=== PATIENT | female | born 1965 | race Caucasian/White ===

== ENCOUNTER 2022-02-07 20:07 | Emergency (ER) | payer OTHER, SELFPAY ==
--- NOTE | ~2022-02-07 | XR_ITS ---
EXAMINATION: XR FOOT, RIGHT CLINICAL INFORMATION: Pain lateral hindfoot. COMPARISON: None TECHNIQUE: AP, lateral, and oblique views of the right foot. FINDINGS: The bones and soft tissues are notable for an avulsion type injury off the dorsal aspect of the navicular. No significant overlying soft tissue swelling. This is age indeterminate. No focal lesion laterally is the site of patient's symptoms. Mild degeneration of the first metatarsophalangeal joint Alignment is anatomic. Joint spaces are maintained. XR/XR foot RT 2V IMPRESSION: As above.
[2022-02-07 20:11] VITALS: BP 132/77; PULSE 75; RESP 18; TEMP 36.7; O2SAT 99; BMI 21.6
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
[2022-02-07] MEDS: oxyCODONE HCl Immed Release 5 MG TABLET PO (21:19)
== END 2022-02-07 22:17 | disposition home or self-care (01) ==
PROVIDERS: Emergency Provider Internal Medicine; PCP Internal Medicine
DX: S92.251A Displaced fracture of navicular [scaphoid] of right foot, initial encounter for closed fracture (principal); M24.271 Disorder of ligament, right ankle; W20.8XXA Other cause of strike by thrown, projected or falling object, initial encounter; Y93.9 Activity, unspecified; Y92.410 Unspecified street and highway as the place of occurrence of the external cause; Y99.9 Unspecified external cause status
CPT/HCPCS: 73620; 99283; 99284